=== PATIENT | male | born 1980 | race Caucasian/White ===

== ENCOUNTER 2016-11-19 15:25 | Emergency (ER) | payer OTHER ==
[2016-11-19 16:56] LABS: BASOPHIL 0.2 % (0-2); HCT 46.4 % (42.0-52.0); MCH 30.6 pg (25.0-31.0); MCHC 34.5 g/dL (32.0-36.0); MCV 88.7 fL (78.0-100.0); MONOCYTE 10.2 % (0-12); MPV 10.6 fL (6.0-9.5); NEUTROPHIL 54.6 % (41-80); PLT 171 K/uL (150-400); RBC 5.23 M/uL (4.70-6.00); RDW 13.1 % (11.5-14.0); WBC 5.9 K/uL (4.0-10.5)
[2016-11-19 17:17] LABS: CREATININE 0.9 mg/dL (0.7-1.2); POTASSIUM 4.3 mmol/L (3.5-5.1)
== END 2016-11-19 20:15 | disposition home or self-care (01) ==
LOC: FER 15:25
PROVIDERS: Internal Medicine
DX: R19.5 Other fecal abnormalities (principal); F17.210 Nicotine dependence, cigarettes, uncomplicated
CPT/HCPCS: 36415; 80048; 85025; 87339

== ENCOUNTER 2022-02-14 18:33 | Emergency (ER) | payer OTHER ==
[2022-02-14] MEDS ORDERED: MEDROL 4MG DOSEP4 MG PO (20:54)
== END 2022-02-14 21:10 | disposition home or self-care (01) ==
LOC: FER 18:33
DX: M25.511 Pain in right shoulder (principal); I10 Essential (primary) hypertension; E11.9 Type 2 diabetes mellitus without complications; F17.210 Nicotine dependence, cigarettes, uncomplicated; Z79.84 Long term (current) use of oral hypoglycemic drugs; X50.1XXA Overexertion from prolonged static or awkward postures, initial encounter; Y92.89 Other specified places as the place of occurrence of the external cause; Y99.0 Civilian activity done for income or pay
CPT/HCPCS: 73030